=== PATIENT | female | born 2000 | race African-American/Black ===

== ENCOUNTER 2022-08-04 13:49 | Emergency (ER) | payer OTHER, SELFPAY ==
--- NOTE | ~2022-08-04 | CT_ITS ---
EXAMINATION: CT ABDOMEN AND PELVIS WITHOUT CONTRAST CLINICAL INFORMATION: Right lower quadrant pain COMPARISON: None TECHNIQUE: Multidetector volumetric imaging was performed from the superior aspect of the liver through the pubic symphysis. Sagittal and coronal reformatted images were obtained on the technologist's workstation. This CT examination was performed using dose optimization techniques as appropriate, variously including the following: *Automated exposure control *Adjustment of mA and/or kV according to patient size (this includes techniques or standardized protocols for targeted exams where dose is matched to indication/reason for exam; i.e. extremities or head) *Use of iterative reconstruction technique DLP: 728 mGy-cm FINDINGS: LUNG BASES: The visualized lung bases are unremarkable. LIVER, GALLBLADDER, AND BILIARY TREE: The liver is normal in size, shape, and attenuation. No focal hepatic lesion or biliary ductal dilatation is identified. The gallbladder is unremarkable with no evidence of radiopaque gallstones, gallbladder wall thickening, or obvious pericholecystic inflammatory changes. PANCREAS: Unremarkable. SPLEEN: Unremarkable. ADRENAL GLANDS: Unremarkable. KIDNEYS AND URETERS: The kidneys are normal in size, shape, and attenuation. Small hypodensity in the upper right kidney favors a cyst; no follow-up recommended. Tiny mid right renal calculus. No hydronephrosis, hydroureter, or obstructing calculi seen. No perinephric stranding. BLADDER: Minimally distended and grossly unremarkable. GASTROINTESTINAL TRACT: No evidence of bowel obstruction or significant wall thickening. The appendix is unremarkable. There is suggestion of trace pelvic free fluid. No free air is seen. ABDOMINAL WALL: No significant hernia is appreciated. LYMPH NODES: No lymphadenopathy is seen, though assessment is limited in the absence of intravenous contrast. VASCULAR: Unremarkable. PELVIC VISCERA: Unremarkable. OSSEOUS STRUCTURES: Partially visualized thoracolumbar spinal fusion hardware. CT/CT abdomen pelvis wo IV con IMPRESSION: Suggestion of trace pelvic free fluid, which may be physiologic. Otherwise, no acute findings identified. Normal appendix.
[2022-08-04 13:58] VITALS: BP 134/86; PULSE 91; RESP 18; TEMP 36.8; O2SAT 98; BMI 24.1
[2022-08-04 21:41] LABS: MANUAL DIFF FLAG NO
[2022-08-04 21:43] LABS: Basophils Percent Auto 0.3 % (0-2); Eosinophils Percent Auto 0.1 % (0-4); Hematocrit 38.2 % (37.0-47.0); Hemoglobin 12.5 g/dl (12.0-16.0); Imm Gran Abs Auto 0.01 X10*3/uL (0.00-0.03); Imm Gran Pct Auto 0.1 % (0.0-0.4); Lymphocytes Absolute Auto 2.5 X10*3/uL (1.2-4.9); Lymphocytes Percent Auto 31.9 % (20-40); Mean Corpuscular HGB Conc 32.7 g/dl (31.0-35.0); Mean Corpuscular Hemoglobin 27.4 pg (27.0-33.0); Mean Corpuscular Volume 83.6 fL (80.0-98.0); Monocytes Absolute Auto 0.7 X10*3/uL (0.1-1.2); Monocytes Percent Auto 8.2 % (2-11); Neutrophils Absolute Auto 4.7 x10*3/uL (2.0-8.3); Neutrophils Percent Auto 59.4 % (45-73); Platelet Count 284 X10*3/uL (160-400); Red Blood Count 4.57 X10*6/uL (4.20-5.50); Red Cell Distribution Width 13.3 % (11.0-16.0); White Blood Count 7.9 X10*3/uL (4.8-10.8)
[2022-08-04 22:07] LABS: Alanine Aminotransferase 9 U/L (0-31); Alkaline Phosphatase 63 U/L (39-117); Anion Gap 17 (12-20); Aspartate Amino Transferase 13 U/L (5-31); Bilirubin Total 0.3 mg/dL (0.0-1.0); Blood Urea Nitrogen 7 mg/dL (9-16); Calcium 9.9 mg/dL (8.4-10.2); Carbon Dioxide 22 mmol/L (22-29); Chloride 104 mmol/L (96-108); Creatinine Clr Calc Pharmacy 115.3; Estimated Glomerular Filt Rate > 60; Glucose Random 97 mg/dL (60-115); Potassium 3.4 mmol/L (3.3-5.1); Sodium 140 mmol/L (135-145); Total Protein 7.8 g/dL (6.5-8.0)
--- OUTSIDE RECORDS SUMMARY | 2022-08-04 23:40 | XMS_ITS | Continuity of Care Document ---
:2000 Author Organization [facility] Address [address] [place] [id number]- Care Team Providers Name Role Phone Mary Cruz NP Primary Care Physician Encounter [facility] Date(s): 10/18/19 - 10/18/[address] [id number]- [facility] Attending Physician: Lakeisha SWANSON, Nam Andrade
--- OUTSIDE RECORDS SUMMARY | 2022-08-04 23:40 | XMS_ITS | Continuity of Care Document ---
:2000 Author Organization [facility] Address [address] [place] [id number]- Care Team Providers Name Role Phone Mary Cruz NP Primary Care Physician Encounter [facility] Date(s): 10/17/19 - 10/17/[address] [address]- [facility] Attending Physician: Lakeisha SWANSON, Nam Andrade
--- NOTE | 2022-08-04 23:47 | ED_ITS ---
HPI - General Adult General Chief complaint: General Medical Stated complaint: Vomiting/Abd pain Time Seen by Provider: 08/04/22 16:27 Source: patient Mode of arrival: ambulatory Limitations: no limitations History of Present Illness HPI narrative: 30-year-old female came in for evaluation of abdominal pain and vomiting. Patient with history of migraines about twice a month you please a migraine represent as a severe headache accompanied by right lower quadrant abdominal pain with vomiting. Symptoms started today since morning with nausea vomiting and headache with right lower quadrant abdominal pain, patient called her PCP requested the patient to come to the ED for evaluation of appendicitis. Patient's migraine is better now able to tolerate p.o. intake still complaining of right lower quadrant pain. No dysuria, no urinary frequency, no vaginal discharge or bleed, patient declined chance of . Related Data Allergies Allergy/AdvReac Type Severity Reaction Status Date / Time No Known Allergies Allergy Verified 08/04/22 23:46 Review of Systems Review of Systems: All other systems are reviewed and are negative Constitutional: Reports as per HPI and Reports no additional constitutional complaints Eyes: Reports as per HPI and Reports no additional eye complaints Reports system reviewed and no additional complaints, except as documented Cardiovascular: Reports as per HPI and Reports no additional cardiovascular complaints Respiratory: Reports as per HPI and Reports no additional respiratory complaints Gastrointestinal: Reports as per HPI and Reports no additional gastrointestinal complaints Genitourinary: Reports no additional female genitourinary complaints Musculoskeletal: Reports no additional musculoskeletal complaints Skin/Breast: Reports system reviewed and no additional complaints, except as docu Psychiatric: Reports no additional psychiatric complaints Endocrine: Reports no additional endocrine complaints Hematologic/Lymphatic: Reports no additional hematologic/lymphatic complaints Allergic/Immunologic: Reports no additional allergic/immunologic complaints Reports system reviewed and no additional complaints, except as documented and Reports Abnormal speech present [facility] Social History Social History Advance Directives: No Advance Directives Information Provided: Yes Physical Exam ED Vital Signs: Vital Signs - 24 hr 08/04/22 13:58 08/05/22 01:07 Temperature 98.3 F 98.1 F Pulse Rate 91 72 Respiratory Rate 18 17 Blood Pressure 134/86 130/69 Pulse Oximetry 98 98 Oxygen Delivery Method Room Air Room Air BMI result Body Mass Index 24.1 Vital signs have been reviewed as appeared to be correct. Blood pressure normal. Heart rate normal. Respiration rate normal. Temperature normal. Oxygen saturation normal. Appearance: Alert. Oriented X3. No acute distress. Head: Normal external exam. Normocephalic. Atraumatic. No Connelly signs noted. No raccoon eyes noted Eyes: PERRLA. EOMI. Conjunctiva and sclera normal. Eyelids normal. ENT: TM's Normal. Pharynx normal. Uvula midline. Moist mucous membranes. No trismus noted. No drooling noted. No muffled voice noted. Neck: Normal inspection. Neck supple. FROM. No adenopathy. Thyroid Normal. No meningeal signs. No neck mass noted. CVS: Normal heart rate and rhythm. Heart sound normal. No murmurs noted. Pulses normal throughout. Respiratory: No respiratory distress. Painless inspiration. Breath sounds normal. No wheezes/rales/rhonchi noted. Chest nontender. No accessory muscle usage noted or decreased air movement noted. Abdomen: Soft, right lower quadrant mild tenderness, no guarding, no rebound tenderness.. Bowel sounds normal in all 4 quadrants. No distention noted. No organomegaly noted. No visible injury noted. Back: No CVA tenderness. Full range of motion noted. Skin: Skin warm and dry. Normal skin color. Normal skin turgor. No rashes/lesions/lacerations noted. Extremities: No lower extremity edema. Extremities exhibit normal range of motion. Extremities nontender. Neuro: Oriented X 3. Cranial nerve exam: II-XII are grossly intact No motor deficit. No sensory deficit. Reflexes normal. Course Course Course Narrative: Patient now has no migraine, no abdominal pain, unremarkable labs, CT of the abdomen pelvis was unremarkable for intra-abdominal pathology will be discharged to follow-up with PCP for further management of migraine. Medical Decision Making Lab Data Lab results reviewed: Yes I reviewed the patient's lab results. Result diagrams: 08/04/22 21:36 08/04/22 21:35 Labs: Lab Results 08/04/22 08/04/22 08/04/22 Range/Units 21:35 21:36 23:52 WBC 7.9 (4.8-10.8) X10*3/uL RBC 4.57 (4.20-5.50) X10*6/uL Hgb 12.5 (12.0-16.0) g/dl Hct 38.2 (37.0-47.0) % MCV 83.6 (80.0-98.0) fL MCH 27.4 (27.0-33.0) pg MCHC 32.7 (31.0-35.0) g/dl RDW 13.3 (11.0-16.0) % Plt Count 284 (160-400) X10*3/uL MPV 9.0 L (9.4-12.3) fL Immature Gran % (Auto) 0.1 (0.0-0.4) % Neut % (Auto) 59.4 (45-73) % Lymph % (Auto) 31.9 (20-40) % [place] % (Auto) 8.2 (2-11) % Eos % (Auto) 0.1 (0-4) % Baso % (Auto) 0.3 (0-2) % Lymph # (Auto) 2.5 (1.2-4.9) X10*3/uL [place] # (Auto) 0.7 (0.1-1.2) X10*3/uL Eos # (Auto) 0.0 (0.0-0.4) X10*3/uL Baso # (Auto) 0.0 (0.0-0.2) X10*3/uL Abs Immat Gran (auto) 0.01 (0.00-0.03) X10*3/uL Absolute Neuts (auto) 4.7 (2.0-8.3) x10*3/uL Absolute Nucleated RBC 0.000 (0.0-0.012) X10*3/uL Nucleated RBC % (auto) 0.0 (0.0-0.2) /100WBC Sodium 140 (135-145) mmol/L Potassium 3.4 (3.3-5.1) mmol/L Chloride 104 (96-108) mmol/L Carbon Dioxide 22 (22-29) mmol/L Anion Gap 17 (12-20) BUN 7 L (9-16) mg/dL Creatinine 0.75 (0.5-1.4) mg/dL Estim Creat Clear Calc 115.3 Estimated GFR > 60 Random Glucose 97 (60-115) mg/dL Calcium 9.9 (8.4-10.2) mg/dL Total Bilirubin 0.3 (0.0-1.0) mg/dL AST 13 (5-31) U/L ALT 9 (0-31) U/L Alkaline Phosphatase 63 (39-117) U/L Total Protein 7.8 (6.5-8.0) g/dL Albumin 5.0 (3.5-5.0) g/dL Urine Color Yellow Urine Appearance Clear Urine pH 5.5 (5.0-9.0) Ur Specific [place] 1.020 (1.005-1.025) Urine Protein Negative (Neg-Trace) mg/dL Urine Glucose (UA) Negative (Negative) mg/dL Urine Ketones Trace (Negative) mg/dL Urine Blood Small (1+) H (Negative) Urine Nitrite Negative (Negative) Ur Leukocyte Esterase Small (1+) H (Negative) Urine RBC 11-20 H (0-2) /HPF Urine WBC 6-10 H (0-5) /HPF Ur Squamous Epith Cells 6-10 (0-2) /HPF Urine Bacteria 2+ (None Seen) Hyaline Casts 0-2 (0-2) /LPF Urine Test (NEGATIVE) 08/04/22 Range/Units 23:52 WBC (4.8-10.8) X10*3/uL RBC (4.20-5.50) X10*6/uL Hgb (12.0-16.0) g/dl Hct (37.0-47.0) % MCV (80.0-98.0) fL MCH (27.0-33.0) pg MCHC (31.0-35.0) g/dl RDW (11.0-16.0) % Plt Count (160-400) X10*3/uL MPV (9.4-12.3) fL Immature Gran % (Auto) (0.0-0.4) % Neut % (Auto) (45-73) % Lymph % (Auto) (20-40) % [place] % (Auto) (2-11) % Eos % (Auto) (0-4) % Baso % (Auto) (0-2) % Lymph # (Auto) (1.2-4.9) X10*3/uL [place] # (Auto) (0.1-1.2) X10*3/uL Eos # (Auto) (0.0-0.4) X10*3/uL Baso # (Auto) (0.0-0.2) X10*3/uL Abs Immat Gran (auto) (0.00-0.03) X10*3/uL Absolute Neuts (auto) (2.0-8.3) x10*3/uL Absolute Nucleated RBC (0.0-0.012) X10*3/uL Nucleated RBC % (auto) (0.0-0.2) /100WBC Sodium (135-145) mmol/L Potassium (3.3-5.1) mmol/L Chloride (96-108) mmol/L Carbon Dioxide (22-29) mmol/L Anion Gap (12-20) BUN (9-16) mg/dL Creatinine (0.5-1.4) mg/dL Estim Creat Clear Calc Estimated GFR Random Glucose (60-115) mg/dL Calcium (8.4-10.2) mg/dL Total Bilirubin (0.0-1.0) mg/dL AST (5-31) U/L ALT (0-31) U/L Alkaline Phosphatase (39-117) U/L Total Protein (6.5-8.0) g/dL Albumin (3.5-5.0) g/dL Urine Color Urine Appearance Urine pH (5.0-9.0) Ur Specific [place] (1.005-1.025) Urine Protein (Neg-Trace) mg/dL Urine Glucose (UA) (Negative) mg/dL Urine Ketones (Negative) mg/dL Urine Blood (Negative) Urine Nitrite (Negative) Ur Leukocyte Esterase (Negative) Urine RBC (0-2) /HPF Urine WBC (0-5) /HPF Ur Squamous Epith Cells (0-2) /HPF Urine Bacteria (None Seen) Hyaline Casts (0-2) /LPF Urine Test NEGATIVE (NEGATIVE) Imaging Data Abdomen and pelvis CT: Attestation: I personally reviewed and interpreted this imaging study as follows: Radiologist's impression: Suggestion of trace pelvic free fluid, which may be physiologic. Otherwise, no acute findings identified. Normal appendix.? ? Discharge Plan Discharge Clinical Impression: Migraine, Abdominal pain Patient Disposition: Home, Self-Care Instructions: Abdominal Pain (ED) Referrals: Physician,Unknown J [Primary Care Provider] -
[2022-08-05] LABS: Appearance Urine Clear; Color Urine Yellow; Glucose Urine UA Negative (Negative); Leukocyte Esterase Urine Small (1+) (Negative); Nitrite Urine Negative (Negative); PH 5.5 (5.0-9.0); UMIC TRIGGER UACC YES; Urine Blood Small (1+) (Negative); Urine Ketones Trace mg/dL (Negative); Urine Protein Negative (Neg-Trace)
[2022-08-05 00:02] LABS: Bacteria Urine 2+ (None Seen); Hyaline Casts Urine 0-2 /LPF (0-2); UACC Culture Trigger YES
[2022-08-05 00:17] LABS: UPreg QC Valid YES; Urine Pregnancy NEGATIVE (NEGATIVE)
[2022-08-05 01:07] VITALS: BP 130/69; PULSE 72; RESP 17; TEMP 36.7; O2SAT 98
== END 2022-08-05 03:53 | disposition home or self-care (01) ==
PROVIDERS: Emergency Provider Emergency Medicine
DX: G43.909 Migraine, unspecified, not intractable, without status migrainosus (principal); R10.31 Right lower quadrant pain
CPT/HCPCS: 36415; 74176; 80053; 81001; 81003; 81025; 85025; 87086; 99283; 99284

== ENCOUNTER 2023-02-15 23:00 | Emergency (ER) | payer OTHER, SELFPAY ==
[2023-02-16 00:24] VITALS: BP 130/82; PULSE 95; RESP 16; TEMP 36.8; O2SAT 100; BMI 33.9
--- NOTE | 2023-02-16 00:37 | ECG_ITS ---
Test Reason : migraine Blood Pressure : / mmHG Vent. Rate : 089 BPM Atrial Rate : 089 BPM P-R Int : 128 ms QRS Dur : 086 ms QT Int : 400 ms P-R-T Axes : 042 049 031 degrees QTc Int : 486 ms Artifact in tracing Normal sinus rhythm Normal ECG No previous ECGs available Referred By: Generic ED Physician Electronically Signed By:JAIME WHITAKER
--- NOTE | 2023-02-16 00:53 | ED_ITS ---
HPI - General Adult General Chief complaint: General Medical Stated complaint: passed out, migraines, vomiting Time Seen by Provider: 02/16/23 00:53 Source: patient and family (Stepmother, Altagracia) Mode of arrival: ambulatory Limitations: no limitations History of Present Illness HPI narrative: 23-year-old female who presents emergency department for evaluation of headache and syncopal episode. The patient states that yesterday she did not eat breakfast but this is not unusual for her. She then went to druze and came home at around 15:00 hours. She states that she then developed a pounding headache. The headache was located in the temporal areas of her head and was 9/10 at its worst. She had associated nausea, photophobia and phonophobia. She tried to eat a sandwich and then developed nausea and vomiting. At some point she went to bed and patient's stepmother states that the patient passed out. T he patient states that she gets pounding headaches 3 to 4 times a week. These headaches are often associated with nausea, photophobia and phonophobia. She sometimes sees flashing lights in her peripheral vision as well. She has had several episodes of syncopal episodes. She had 1 episode after she got out of the shower 2 weeks ago. The patient states she has been taking Excedrin migraine for the headaches with some relief. At the time my evaluation she states that her headache was 7/10. The patient states that she has scoliosis and had a spinal fusion in October of 2019. She states that after this spinal fusion she developed headaches. She denied fever, chills, chest pain, shortness of breath, change in bowel movements. She states that her last menstrual period was 01/30/2023 and this was a normal menstrual period for her. Related Data Previous Rx's Medication Instructions Recorded ondansetron HCl 4 mg tablet 4 mg PO DAILY PRN nausea and 08/05/22 vomiting 4 days #7 tabs diphenhydramine HCl 25 mg capsule 50 mg PO Q6H #20 caps 02/16/23 (Benadryl) metoclopramide HCl 10 mg tablet 10 mg PO Q6H PRN nausea and 02/16/23 (Reglan) vomiting #14 tabs Allergies Allergy/AdvReac Type Severity Reaction Status Date / Time No Known Allergies Allergy Verified 08/04/22 23:46 Review of Systems Review of Systems: Yes all other systems are reviewed and are negative [facility] Past Medical History [facility] Narrative: Past medical history: None. Past surgical history: Spinal fusion 10/2019. Social history: She denies tobacco, alcohol and drug use. Social History Social History Alcohol intake: current Alcohol intake frequency: holidays/special occasions only Smoked in Last 30 Days: No Use of substances other than those prescribed or required for medical reasons: No Advance Directives: No Advance Directives Information Provided: Yes Patient : No Physical Exam ED Vital Signs: Vital Signs - 24 hr 02/16/23 00:24 02/16/23 02:37 Temperature 98.3 F Pulse Rate 95 71 Respiratory Rate 16 16 Blood Pressure 130/82 121/76 Pulse Oximetry 100 96 Oxygen Delivery Method Room Air Room Air BMI result Body Mass Index 33.9 Medications Administered Discontinued Medications Generic Name Dose Route Start Last Admin Trade Name Freq PRN Reason Stop Dose Admin Diphenhydramine HCl 50 mg 02/16/23 01:12 02/16/23 01:28 Diphenhydramine Hcl 50 Mg/Ml Vial IVPUSH 02/16/23 01:13 50 mg ONCE STA Administration Sodium Chloride 1,000 mls @ 999 mls/hr 02/16/23 01:12 02/16/23 02:29 Ns IV 02/16/23 02:12 Infused .Q1H1M STA Infusion Ketorolac Tromethamine 15 mg 02/16/23 01:12 02/16/23 01:28 Ketorolac Tromethamine 15 Mg/Ml Vial IVPUSH 02/16/23 01:13 15 mg ONCE STA Administration Metoclopramide HCl 10 mg 02/16/23 01:12 02/16/23 01:28 Metoclopramide Hcl 10 Mg/2 Ml Vial IVPUSH 02/16/23 01:13 10 mg ONCE STA Administration Medical Decision Making Medical Decision Making [facility] Narrative: 23-year-old female who presents emergency department for evaluation of headache, nausea, vomiting, syncopal episode. The patient's headache was associated with nausea, vomiting, photophobia and phonophobia. The patient had very little food and fluid to drink throughout the day yesterday prior to her syncopal episode. Patient's vital signs were normal. Patient's physical examination was unremarkable. I ordered a CBC, CMP, troponin, urine test, urinalysis, 12 EKG. Patient was ordered to get normal saline x1 L. patient's headache was treated with Toradol 15 mg IV, regular and 10 mg IV and Benadryl 50 mg IV. 0241: My interpretation patient's laboratory data is as follows: Mild anemia with an H&H of 11.6 and 35.5. Normal CMP. Troponin below detectable limits. Urine negative. Urinalysis consistent with a non clean catch specimen-patient has no urinary symptoms Twelve EKG had a wandering baseline was difficult to interpret, QTC was above 475. Do not think however this is the cause of her syncopal episodes Patient's headache is improved to 4/10 with the above treatment. I did discuss not missing meals and staying hydrated throughout the day. Also the patient's migraines will be treated with the following regimen : Reglan 10 mg, Benadryl 50 mg Excedrin migraine 2 tablets every 6 hours as needed. Patient will need to follow-up with her PCP for further management of her migraines. I also will refer her to our neurologist as well. Differential Diagnosis Differential diagnosis includes was not limited to vasovagal syncope, dehydration, arrhythmia, migraine syndrome Lab Data [facility] Lab Attestation statement: I reviewed the patient's lab results. Please see MDM 02/16/23 01:18 02/16/23 01:18 Labs: Lab Results 02/16/23 02/16/23 02/16/23 Range/Units 01:17 01:17 01:18 WBC 6.3 (4.8-10.8) X10*3/uL RBC 4.22 (4.20-5.50) X10*6/uL Hgb 11.6 L (12.0-16.0) g/dl Hct 35.5 L (37.0-47.0) % MCV 84.1 (80.0-98.0) fL MCH 27.5 (27.0-33.0) pg MCHC 32.7 (31.0-35.0) g/dl RDW 13.3 (11.0-16.0) % Plt Count 208 D (160-400) X10*3/uL MPV 8.8 L (9.4-12.3) fL Immature Gran % (Auto) 0.3 (0.0-0.4) % Neut % (Auto) 55.2 (45-73) % Lymph % (Auto) 37.3 (20-40) % [place] % (Auto) 6.6 (2-11) % Eos % (Auto) 0.3 (0-4) % Baso % (Auto) 0.3 (0-2) % Lymph # (Auto) 2.4 (1.2-4.9) X10*3/uL [place] # (Auto) 0.4 (0.1-1.2) X10*3/uL Eos # (Auto) 0.0 (0.0-0.4) X10*3/uL Baso # (Auto) 0.0 (0.0-0.2) X10*3/uL Abs Immat Gran (auto) 0.02 (0.00-0.03) X10*3/uL Absolute Neuts (auto) 3.5 (2.0-8.3) x10*3/uL Absolute Nucleated RBC 0.000 (0.0-0.012) X10*3/uL Nucleated RBC % (auto) 0.0 (0.0-0.2) /100WBC Sodium (135-145) mmol/L Potassium (3.3-5.1) mmol/L Chloride (96-108) mmol/L Carbon Dioxide (22-29) mmol/L Anion Gap (12-20) BUN (9-16) mg/dL Creatinine (0.5-1.4) mg/dL Estim Creat Clear Calc Estimated GFR Random Glucose (60-115) mg/dL Calcium (8.4-10.2) mg/dL Total Bilirubin (0.0-1.0) mg/dL AST (5-31) U/L ALT (0-31) U/L Alkaline Phosphatase (39-117) U/L Troponin I High Sens (<3.5-17.0) ng/L Total Protein (6.5-8.0) g/dL Albumin (3.5-5.0) g/dL Urine Color Yellow Urine Appearance Clear Urine pH 7.0 (5.0-9.0) Ur Specific [place] 1.015 (1.005-1.025) Urine Protein Negative (Neg-Trace) mg/dL Urine Glucose (UA) Negative (Negative) mg/dL Urine Ketones Negative (Negative) mg/dL Urine Blood Trace H (Negative) Urine Nitrite Negative (Negative) Ur Leukocyte Esterase Small (1+) H (Negative) Urine RBC 11-20 H (0-2) /HPF Urine WBC 6-10 H (0-5) /HPF Ur Squamous Epith Cells 3-5 (0-2) /HPF Urine Bacteria 1+ (None Seen) Hyaline Casts 0-2 (0-2) /LPF Urine Test NEGATIVE (NEGATIVE) 02/16/23 02/16/23 Range/Units 01:18 01:18 WBC (4.8-10.8) X10*3/uL RBC (4.20-5.50) X10*6/uL Hgb (12.0-16.0) g/dl Hct (37.0-47.0) % MCV (80.0-98.0) fL MCH (27.0-33.0) pg MCHC (31.0-35.0) g/dl RDW (11.0-16.0) % Plt Count (160-400) X10*3/uL MPV (9.4-12.3) fL Immature Gran % (Auto) (0.0-0.4) % Neut % (Auto) (45-73) % Lymph % (Auto) (20-40) % [place] % (Auto) (2-11) % Eos % (Auto) (0-4) % Baso % (Auto) (0-2) % Lymph # (Auto) (1.2-4.9) X10*3/uL [place] # (Auto) (0.1-1.2) X10*3/uL Eos # (Auto) (0.0-0.4) X10*3/uL Baso # (Auto) (0.0-0.2) X10*3/uL Abs Immat Gran (auto) (0.00-0.03) X10*3/uL Absolute Neuts (auto) (2.0-8.3) x10*3/uL Absolute Nucleated RBC (0.0-0.012) X10*3/uL Nucleated RBC % (auto) (0.0-0.2) /100WBC Sodium 141 (135-145) mmol/L Potassium 4.1 D (3.3-5.1) mmol/L Chloride 106 (96-108) mmol/L Carbon Dioxide 28 (22-29) mmol/L Anion Gap 11 L (12-20) BUN 11 (9-16) mg/dL Creatinine 0.82 (0.5-1.4) mg/dL Estim Creat Clear Calc 125.1 Estimated GFR > 60 Random Glucose 107 (60-115) mg/dL Calcium 9.6 (8.4-10.2) mg/dL Total Bilirubin 0.3 (0.0-1.0) mg/dL AST 11 (5-31) U/L ALT 8 (0-31) U/L Alkaline Phosphatase 63 (39-117) U/L Troponin I High Sens < 2.7 (<3.5-17.0) ng/L Total Protein 6.8 (6.5-8.0) g/dL Albumin 4.5 (3.5-5.0) g/dL Urine Color Urine Appearance Urine pH (5.0-9.0) Ur Specific [place] (1.005-1.025) Urine Protein (Neg-Trace) mg/dL Urine Glucose (UA) (Negative) mg/dL Urine Ketones (Negative) mg/dL Urine Blood (Negative) Urine Nitrite (Negative) Ur Leukocyte Esterase (Negative) Urine RBC (0-2) /HPF Urine WBC (0-5) /HPF Ur Squamous Epith Cells (0-2) /HPF Urine Bacteria (None Seen) Hyaline Casts (0-2) /LPF Urine Test (NEGATIVE) Independent Interpretation I performed an independent interpretation of an: EKG Interpretation: My independent interpretation patient's 12 EKG done at 01:32 is as follows: Wandering baseline which makes it difficult to interpret: He normal sinus rhythm rate of 89, normal ME interval QRS duration, prolonged Q CT of 486 milliseconds, no ST segment elevation, no ST segment depression, no PVCs, no PACs. Discharge Plan Discharge Clinical Impression: Migraine headache, Vasovagal syncope, Acute dehydration Patient Disposition: Home, Self-Care Instructions: Migraine Headache (ED), Syncope (ED) Additional Instructions: Your laboratory evaluation was unremarkable Your EKG was normal. Your passing out is consistent with vasovagal syncope (fainting) which is probably caused by dehydration your, not eating enough food during the day and your migraine headaches. Make sure you do not skip breakfast, the 3 meals a day and drink more fluid throughout the day to try to prevent fainting spells . I want you to take the following 3 medications together every 6 hours as needed for headache, nausea or vomiting. Reglan (metoclopramide) in 10 mg, 1 pill Benadryl 25 mg, 2 pills Excedrin migraine, 2 pills. After you take these medications, lie down in a dark quiet room and try to fall asleep. These medications will make you sleepy, do not drive or work after taking these medications. Follow-up with your doctor in 2 days. Please return to the emergency department if your symptoms get worse or if you develop any symptoms that are concerning to you. You can also try to see our neurologists for your migraine headaches. Call [facility] office to see you can be seen in their office for migraines. Prescriptions: New metoclopramide HCl [Reglan] 10 mg tablet 10 mg PO Q6H PRN (Reason: nausea and vomiting) Qty: 14 0RF diphenhydramine HCl [Benadryl] 25 mg capsule 50 mg PO Q6H Qty: 20 0RF No Action ondansetron HCl 4 mg tablet 4 mg PO DAILY PRN (Reason: nausea and vomiting) 4 Days Qty: 7 0RF
--- NOTE | 2023-02-16 01:00 | PC.NURSE ---
Pt presented to ER with a migraine and nausea. Pt mother at bedside reports pt blacked out around 5:00 PM. Pt reporting 9/10 pain in the temples bilaterally. Pt resting in bed at this time. MD at the bedside.
[2023-02-16 01:25] LABS: Appearance Urine Clear; Color Urine Yellow; Glucose Urine UA Negative (Negative); Leukocyte Esterase Urine Small (1+) (Negative); Nitrite Urine Negative (Negative); Specific Gravity - Urine 1.015 (1.005-1.025); UMIC TRIGGER UACC YES; Urine Blood Trace (Negative); Urine Ketones Negative (Negative); Urine Protein Negative (Neg-Trace)
[2023-02-16 01:26] LABS: UPreg QC Valid YES; Urine Pregnancy NEGATIVE (NEGATIVE)
[2023-02-16 01:27] LABS: Bacteria Urine 1+ (None Seen); Hyaline Casts Urine 0-2 /LPF (0-2); UACC Culture Trigger YES
[2023-02-16] MEDS: Ketorolac Tromethamine 15 MG/ML VIAL IVPUSH (01:28)
[2023-02-16] MEDS: 0.9 % Sodium Chloride 1,000 ML 999 ML IV (01:28)
[2023-02-16] MEDS: Metoclopramide HCl 10 MG/2 ML VIAL IVPUSH (01:28)
[2023-02-16] MEDS: diphenhydrAMINE HCL 50 MG/ML VIAL IVPUSH (01:28)
[2023-02-16 01:29] LABS: MANUAL DIFF FLAG NO
[2023-02-16 01:30] LABS: Basophils Percent Auto 0.3 % (0-2); Eosinophils Percent Auto 0.3 % (0-4); Hematocrit 35.5 % (37.0-47.0); Hemoglobin 11.6 g/dl (12.0-16.0); Imm Gran Abs Auto 0.02 X10*3/uL (0.00-0.03); Imm Gran Pct Auto 0.3 % (0.0-0.4); Lymphocytes Absolute Auto 2.4 X10*3/uL (1.2-4.9); Lymphocytes Percent Auto 37.3 % (20-40); Mean Corpuscular HGB Conc 32.7 g/dl (31.0-35.0); Mean Corpuscular Hemoglobin 27.5 pg (27.0-33.0); Mean Corpuscular Volume 84.1 fL (80.0-98.0); Mean Platelet Volume 8.8 fL (9.4-12.3); Monocytes Absolute Auto 0.4 X10*3/uL (0.1-1.2); Monocytes Percent Auto 6.6 % (2-11); Neutrophils Absolute Auto 3.5 x10*3/uL (2.0-8.3); Neutrophils Percent Auto 55.2 % (45-73); Platelet Count 208 X10*3/uL (160-400); Red Blood Count 4.22 X10*6/uL (4.20-5.50); Red Cell Distribution Width 13.3 % (11.0-16.0); White Blood Count 6.3 X10*3/uL (4.8-10.8)
[2023-02-16 01:54] LABS: Alanine Aminotransferase 8 U/L (0-31); Albumin Level 4.5 g/dL (3.5-5.0); Alkaline Phosphatase 63 U/L (39-117); Anion Gap 11 (12-20); Aspartate Amino Transferase 11 U/L (5-31); Bilirubin Total 0.3 mg/dL (0.0-1.0); Blood Urea Nitrogen 11 mg/dL (9-16); Calcium 9.6 mg/dL (8.4-10.2); Carbon Dioxide 28 mmol/L (22-29); Chloride 106 mmol/L (96-108); Creatinine Clr Calc Pharmacy 125.1; Estimated Glomerular Filt Rate > 60; Glucose Random 107 mg/dL (60-115); Potassium 4.1 mmol/L (3.3-5.1); Sodium 141 mmol/L (135-145); Total Protein 6.8 g/dL (6.5-8.0)
[2023-02-16 01:55] LABS: Troponin-I High Sensitivity < 2.7 ng/L (<3.5-17.0)
[2023-02-16 02:37] VITALS: BP 121/76; PULSE 71; RESP 16; O2SAT 96
== END 2023-02-16 03:00 | disposition home or self-care (01) ==
PROVIDERS: Emergency Provider Emergency Medicine Emergency Medical Services
DX: G43.909 Migraine, unspecified, not intractable, without status migrainosus (principal); E86.0 Dehydration; R55 Syncope and collapse; Z79.899 Other long term (current) drug therapy
CPT/HCPCS: 36415; 80053; 81001; 81025; 84484; 85025; 87086; 93005; 96361; 96374; 96375; 99284; 99285; J1200; J1885; J2765

== ENCOUNTER 2024-10-07 08:27 | Emergency (ER) | payer OTHER, SELFPAY ==
--- NOTE | ~2024-10-07 | CT_ITS ---
EXAMINATION: CT ABDOMEN AND PELVIS WITHOUT CONTRAST CLINICAL INFORMATION: Left flank pain, hematuria COMPARISON: 08/05/2022 TECHNIQUE: Multidetector volumetric imaging was performed of the abdomen and pelvis without contrast. No oral contrast material.. Sagittal and coronal reformatted images were obtained on the technologist's workstation. This CT examination was performed using dose optimization techniques as appropriate, variously including the following: *Automated exposure control *Adjustment of mA and/or kV according to patient size (this includes techniques or standardized protocols for targeted exams where dose is matched to indication/reason for exam; i.e. extremities or head) *Use of iterative reconstruction technique DLP: 791 mGy-cm FINDINGS: LUNG BASES: The visualized lung bases are clear. There is, however, 8 24 mm mass in the 6:00 position of the right breast. LIVER, GALLBLADDER, AND BILIARY TREE: The liver is normal in size, shape, and attenuation. No focal hepatic lesion or biliary ductal dilatation is present. The gallbladder is unremarkable with no evidence of radiopaque gallstones, gallbladder wall thickening, or obvious pericholecystic inflammatory changes. PANCREAS: Unremarkable SPLEEN: Unremarkable ADRENAL GLANDS: Unremarkable KIDNEYS AND URETERS: A punctate right renal midpole calculus is unchanged. No left renal calculi are detected. There is no obstructive uropathy. BLADDER: Unremarkable GASTROINTESTINAL TRACT: The small and large bowel are unremarkable. The appendix is unremarkable. ABDOMINAL WALL: No significant hernia is appreciated. LYMPH NODES: Normal VASCULAR: Unremarkable PELVIC VISCERA: Unremarkable OSSEOUS STRUCTURES: Spinal fixation surgery is again evident extending from the thoracic spine through the lower lumbar spine. There are no suspicious bone lesions. CT/CT abdomen pelvis wo IV con IMPRESSION: 1. No acute findings in the abdomen or pelvis. 2. Right breast mass. Correlation with right breast ultrasound is recommended. 3. Punctate nonobstructing right renal calculus, unchanged. Fleischner guidelines were followed. Electronically signed by: Hank Cardona MD 10/07/2024 11:50 AM RICHAR
[2024-10-07 08:43] VITALS: BP 128/77; PULSE 87; RESP 24; TEMP 36; O2SAT 100; BMI 34.8
[2024-10-07 09:16] LABS: MANUAL DIFF FLAG NO
[2024-10-07 09:18] LABS: Basophils Percent Auto 0.3 % (0-2); Eosinophils Percent Auto 0.1 % (0-4); Hematocrit 36.9 % (37.0-47.0); Hemoglobin 12.4 g/dl (12.0-16.0); Imm Gran Abs Auto 0.02 X10*3/uL (0.00-0.03); Imm Gran Pct Auto 0.2 % (0.0-0.4); Lymphocytes Absolute Auto 1.1 X10*3/uL (1.2-4.9); Lymphocytes Percent Auto 11.3 % (20-40); Mean Corpuscular HGB Conc 33.6 g/dl (31.0-35.0); Mean Corpuscular Hemoglobin 28.2 pg (27.0-33.0); Mean Corpuscular Volume 83.9 fL (80.0-98.0); Mean Platelet Volume 9.1 fL (9.4-12.3); Monocytes Absolute Auto 0.3 X10*3/uL (0.1-1.2); Monocytes Percent Auto 3.1 % (2-11); Neutrophils Absolute Auto 8.3 x10*3/uL (2.0-8.3); Platelet Count 228 X10*3/uL (160-400); Red Cell Distribution Width 13.3 % (11.0-16.0); White Blood Count 9.7 X10*3/uL (4.8-10.8)
[2024-10-07 09:32] LABS: Appearance Urine Cloudy; Color Urine Yellow; Glucose Urine UA Negative (Negative); Leukocyte Esterase Urine Small (1+) (Negative); Nitrite Urine Negative (Negative); PH >= 9.0 (5.0-9.0); Specific Gravity - Urine 1.025 (1.005-1.025); UMIC TRIGGER UACC YES; UPreg QC Valid YES; Urine Blood Moderate (2+) (Negative); Urine Ketones 15 mg/dL (Negative); Urine Pregnancy NEGATIVE (NEGATIVE); Urine Protein 30 (1+) mg/dL (Neg-Trace)
[2024-10-07 09:35] LABS: Alanine Aminotransferase 15 U/L (0-31); Albumin Level 4.6 g/dL (3.5-5.0); Alkaline Phosphatase 50 U/L (39-117); Anion Gap 15 (12-20); Aspartate Amino Transferase 32 U/L (5-31); Bilirubin Direct 0.1 mg/dL (0.0-0.5); Bilirubin Total 0.3 mg/dL (0.0-1.0); Blood Urea Nitrogen 11 mg/dL (9-16); Calcium 9.8 mg/dL (8.4-10.2); Carbon Dioxide 19 mmol/L (22-29); Chloride 109 mmol/L (96-108); Creatinine Clr Calc Pharmacy 131.8; Estimated Glomerular Filt Rate > 60; Glucose Random 121 mg/dL (60-115); Lipase 11 U/L (8-78); Potassium 4.2 mmol/L (3.3-5.1); Sodium 139 mmol/L (135-145); Total Protein 8.1 g/dL (6.5-8.0)
[2024-10-07 09:47] LABS: Bacteria Urine 3+ (None Seen); Hyaline Casts Urine 0-2 /LPF (0-2); UACC Culture Trigger YES
[2024-10-07 10:06] LABS: Influenza A PCR NEGATIVE (Negative); Influenza B PCR NEGATIVE (Negative); Resp Syncy Virus RNA Qual PCR NEGATIVE (Negative); SARS COV2 PCR INHOUSE NEGATIVE (Negative)
--- NOTE | 2024-10-07 10:21 | ED_ITS ---
HPI - General Adult General Chief complaint: Abdominal Pain Stated complaint: Abd pain Time Seen by Provider: 10/07/24 10:10 Source: patient Mode of arrival: ambulatory Limitations: no limitations History of Present Illness ED Provider: Andrea DESAI narrative: Patient is a 24-year-old female presenting to the emergency department with complaint of nausea, vomiting and diarrhea since this morning as well as left- sided abdominal pain. States that the abdominal pain radiates around her left flank to her back. Denies fevers. Denies any hematemesis, hematochezia or melena. Denies any dysuria, frequency, hematuria or other urinary symptoms. Reports father has history of kidney stones. MD complaint: Nausea, vomiting, diarrhea, abdominal pain Onset (ago): hour(s) Location: abdomen Radiation: back and flank Severity scale (1-10): 8 Associated symptoms: nausea/vomiting Treatments prior to arrival: none Related Data Previous Rx's ?Medication ?Instructions ?Recorded ondansetron HCl 4 mg tablet 4 mg PO DAILY PRN nausea and 08/05/22 vomiting 4 days #7 tabs diphenhydramine HCl 25 mg capsule 50 mg (2 x 25 mg) PO Q6H #20 caps 02/16/23 (Benadryl) metoclopramide HCl 10 mg tablet 10 mg PO Q6H PRN nausea and 02/16/23 (Reglan) vomiting #14 tabs lidocaine 5 % topical patch 1 patch topical DAILY #15 ea 10/07/24 ondansetron 4 mg disintegrating 4 mg PO Q8H PRN nausea and 10/07/24 tablet vomiting #10 tabs Allergies Allergy/AdvReac Type Severity Reaction Status Date / Time No Known Allergies Allergy Verified 10/07/24 08:44 Review of Systems 2 Review of Systems: As per HPI Yes all other systems are reviewed and are negative Constitutional: Constitutional: Reports as per HPI [facility] Social History Social History Alcohol intake: current Alcohol intake frequency: holidays/special occasions only Advance Directives: No Advance Directives Information Provided: Yes Physical Exam ED Vital Signs: Vital Signs - 24 hr 10/07/24 08:43 10/07/24 10:24 10/07/24 12:42 Temperature 96.8 F 97.1 F Pulse Rate 87 72 Respiratory Rate 24 H 14 14 Blood Pressure 128/77 117/62 Pulse Oximetry 100 100 Oxygen Delivery Method Room Air Room Air BMI result Body Mass Index 34.8 Vital signs have been reviewed and appear to be correct. Blood pressure normal. Heart rate normal. Respiratory rate normal. Temperature normal. Oxygen saturation normal. Const General: cooperative, healthy appearing and no acute distress Orientation/consciousness: oriented to person, oriented to place, oriented to time and patient oriented x3 Limitations: no limitations HENMT Head: Yes normocephalic and Yes atraumatic Ears: external ears normal General nose exam: Normal external nose present Face and sinus: Yes face symmetric Mouth: oropharynx normal and moist mucous membranes Throat: Yes uvula midline Eyes Pupils: Equal, round and reactive pupils present Neck Neck: Yes normal visual inspection and Yes supple Resp Effort & Inspection: normal respiratory effort and able to speak in complete sentences Auscultation: clear to auscultation bilaterally Cardio Rate: regular rate Rhythm: regular rhythm Heart sounds: S1 normal heart sound present and S2 normal heart sound present GI Palpation (GI): Soft to palpation and nontender Auscultation: normoactive bowel sounds General: Yes no CVA tenderness Back/Spine/Pelvis Back: no CVA tenderness Skin General skin exam: elasticity normal and turgor normal Neuro General: oriented to person, oriented to place, oriented to time, patient oriented x3, moves all extremities, no focal motor deficits and CN's II-XI intact bilaterally Cranial nerves: Yes Equal, round and reactive pupils present Cognition (Neuro): normal cognition Extrem General: Yes full ROM, Yes no pedal edema and Yes no calf tenderness Psych Mental Status: mental status grossly normal Affect: normal affect Thought process: Normal thought process present Medications Administered Discontinued Medications Generic Name Dose Route Start Last Admin Trade Name Freq PRN Reason Stop Dose Admin Morphine Sulfate 4 mg 10/07/24 10:37 10/07/24 10:43 Morphine Sulfate 4 Mg/Ml Cartridge IVPUSH 10/07/24 10:38 4 mg ONCE ONE Administration Protocol Ondansetron HCl 4 mg 10/07/24 10:37 10/07/24 10:43 Ondansetron Hcl 4 Mg/2 Ml Vial IVPUSH 10/07/24 10:38 4 mg ONCE ONE Administration Medical Decision Making Medical Decision Making MDM Narrative: Patient is a 24-year-old female presenting to the emergency department with complaint of nausea, vomiting and diarrhea since this morning as well as left- sided abdominal pain. On exam patient is awake, A+Ox3, VS WNL, afebrile, normal neurological exam without focal deficits, physical exam findings as above. Given reported symptoms and physical exam findings, initial differential includes gastroenteritis, UTI/pyelonephritis, renal/ureteral calculi. Labs grossly within normal limits. Urinalysis notable for 1+ leukocytes, 2+ blood, 6-10 epithelials. Patient denies any urinary symptoms so suspect this is likely contamination. CT notable for no evidence of renal calculi or hydronephrosis, no other acute findings. My interpretation is in agreement with the radiologist's interpretation. Results discussed with patient and all questions answered. Will refer to Dr. Adams for follow up of right breast mass noted on CT. Patient reports pain is down to a 4/10 and she feels comfortable with discharge home. Will send prescriptions for Zofran and lidocaine patches. Follow up with PCP. Return precautions discussed at bedside. Patient verbalized understanding of and agreement with plan. Differential Diagnosis Differential Diagnoses: The differential diagnosis associated with the presentation includes As per [facility]. Admission/Observation Consideration of admission/observation: Escalation of care including admission/observation considered Patient would have been admitted to the hospital had their work up had any findings where hospital admission was appropriate and their clinical presentation warranted hospital admission. Lab Data [facility] Lab Attestation statement: I reviewed the patient's lab results. as per [facility] 10/07/24 09:13 10/07/24 09:13 Labs: Lab Results 10/07/24 10/07/24 10/07/24 Range/Units 09:13 09:17 09:20 WBC 9.7 (4.8-10.8) X10*3/uL RBC 4.40 (4.20-5.50) X10*6/uL Hgb 12.4 (12.0-16.0) g/dl Hct 36.9 L (37.0-47.0) % MCV 83.9 (80.0-98.0) fL MCH 28.2 (27.0-33.0) pg MCHC 33.6 (31.0-35.0) g/dl RDW 13.3 (11.0-16.0) % Plt Count 228 (160-400) X10*3/uL MPV 9.1 L (9.4-12.3) fL Immature Gran % (Auto) 0.2 (0.0-0.4) % Neut % (Auto) 85.0 H (45-73) % Lymph % (Auto) 11.3 L (20-40) % [place] % (Auto) 3.1 (2-11) % Eos % (Auto) 0.1 (0-4) % Baso % (Auto) 0.3 (0-2) % Lymph # (Auto) 1.1 L (1.2-4.9) X10*3/uL [place] # (Auto) 0.3 (0.1-1.2) X10*3/uL Eos # (Auto) 0.0 (0.0-0.4) X10*3/uL Baso # (Auto) 0.0 (0.0-0.2) X10*3/uL Abs Immat Gran (auto) 0.02 (0.00-0.03) X10*3/uL Absolute Neuts (auto) 8.3 (2.0-8.3) x10*3/uL Absolute Nucleated RBC 0.000 (0.0-0.012) X10*3/uL Nucleated RBC % (auto) 0.0 (0.0-0.2) /100WBC Sodium 139 (135-145) mmol/L Potassium 4.2 (3.3-5.1) mmol/L Chloride 109 H (96-108) mmol/L Carbon Dioxide 19 L (22-29) mmol/L Anion Gap 15 (12-20) BUN 11 (9-16) mg/dL Creatinine 0.81 (0.5-1.4) mg/dL Estim Creat Clear Calc 131.8 Estimated GFR > 60 Random Glucose 121 H (60-115) mg/dL Calcium 9.8 (8.4-10.2) mg/dL Total Bilirubin 0.3 (0.0-1.0) mg/dL Direct Bilirubin 0.1 (0.0-0.5) mg/dL AST 32 H (5-31) U/L ALT 15 (0-31) U/L Alkaline Phosphatase 50 (39-117) U/L Total Protein 8.1 H (6.5-8.0) g/dL Albumin 4.6 (3.5-5.0) g/dL Lipase 11 (8-78) U/L Urine Color Yellow Urine Appearance Cloudy Urine pH >= 9.0 (5.0-9.0) Ur Specific [place] 1.025 (1.005-1.025) Urine Protein 30 (1+) H (Neg-Trace) mg/dL Urine Glucose (UA) Negative (Negative) mg/dL Urine Ketones 15 (Negative) mg/dL Urine Blood Moderate (2+) H (Negative) Urine Nitrite Negative (Negative) Ur Leukocyte Esterase Small (1+) H (Negative) Urine RBC 6-10 H (0-2) /HPF Urine WBC 6-10 (0-5) /HPF Ur Squamous Epith Cells 6-10 (0-2) /HPF Urine Bacteria 3+ (None Seen) Hyaline Casts 0-2 (0-2) /LPF Urine Test NEGATIVE (NEGATIVE) Influenza Type A (PCR) NEGATIVE (Negative) Influenza Type B (PCR) NEGATIVE (Negative) RSV RNA Qual (PCR) NEGATIVE (Negative) SARS-CoV-2 RNA (RT-PCR) NEGATIVE (Negative) Independent Interpretation I performed an independent interpretation of an: CT Scan Interpretation: CT notable for no evidence of renal calculi or hydronephrosis, no other acute findings. Radiology Impression Discussion of test interpretation with radiology: I have reviewed the radiologist's reading. Radiologist Impression: CT/CT abdomen pelvis wo IV con IMPRESSION: 1. No acute findings in the abdomen or pelvis. 2. Right breast mass. Correlation with right breast ultrasound is recommended. 3. Punctate nonobstructing right renal calculus, unchanged. External Record Review External record reviewed: Inpatient record, Office record and Outpatient record Discharge Plan Discharge Clinical Impression: Abdominal pain, Nausea, vomiting, and diarrhea Patient Disposition: Home, Self-Care Instructions: Acute Nausea and Vomiting (ED), Acute Diarrhea (ED), Abdominal Pain (ED) Additional Instructions: You have been evaluated in the emergency department today for nausea, vomiting, and diarrhea. Your evaluation suggests that your symptoms are most likely due to a viral illness which will improve on it's own with rest and fluids. Remember to drink plenty of fluids at home. You are being prescribed ondansetron which you can use as per the prescription instructions for nausea. You are being prescribed topical lidocaine patches which you can wear for up to 12 hours in a 24 hour period. Please follow up with your primary care provider within two days. Return to the emergency department if you experience worsening or uncontrolled pain, inability to tolerate fluids by mouth, difficulty breathing, fevers 100.4? F or greater, recurrent vomiting, or any other concerning symptoms. CT/CT abdomen pelvis wo IV con IMPRESSION: 1. No acute findings in the abdomen or pelvis. 2. Right breast mass. Correlation with right breast ultrasound is recommended. 3. Punctate nonobstructing right renal calculus, unchanged. Prescriptions: New lidocaine 5 % adhesive patch,medicated 1 patch topical DAILY Qty: 15 0RF Rx Instructions: leave on most painful area for up to 12 hrs ondansetron 4 mg tablet,disintegrating 4 mg PO Q8H PRN (Reason: nausea and vomiting) Qty: 10 0RF No Action ondansetron HCl 4 mg tablet 4 mg PO DAILY PRN (Reason: nausea and vomiting) 4 Days Qty: 7 0RF metoclopramide HCl [Reglan] 10 mg tablet 10 mg PO Q6H PRN (Reason: nausea and vomiting) Qty: 14 0RF diphenhydramine HCl [Benadryl] 25 mg capsule 50 mg PO Q6H Qty: 20 0RF Referrals: Anibal Adams MD [Physician] - Print Language: Romanian
[2024-10-07 10:24] VITALS: BP 117/62; PULSE 72; RESP 14; TEMP 36.2; O2SAT 100
[2024-10-07] MEDS: Morphine Sulfate 4 MG/ML CARTRIDGE IVPUSH (10:43)
[2024-10-07] MEDS: ondansetron HCL 4 MG/2 ML VIAL IVPUSH (10:43)
[2024-10-07 12:42] VITALS: RESP 14
[2024-10-07 13:14] VITALS: BP 116/66; PULSE 71; RESP 16; TEMP 37; O2SAT 100
== END 2024-10-07 13:15 | disposition home or self-care (01) ==
PROVIDERS: Emergency Provider Emergency Medicine Emergency Medical Services
DX: R11.2 Nausea with vomiting, unspecified (principal); R19.7 Diarrhea, unspecified; R10.9 Unspecified abdominal pain; Z03.818 Encounter for observation for suspected exposure to other biological agents ruled out
CPT/HCPCS: 0241U; 74176; 80053; 81001; 81025; 82248; 83690; 85025; 87086; 96374; 96375; 99284; J2270; J2405